=== PATIENT | female | born 1990 | race Caucasian/White ===

== ENCOUNTER 2016-06-14 13:05 | Outpatient (CLI) | payer MEDICARE | END 2016-06-14 15:31 | disposition home or self-care (01) | LOC: GENOP 13:05 | DX: O26.832 Pregnancy related renal disease, second trimester (principal); N20.0 Calculus of kidney; Z3A.27 27 weeks gestation of pregnancy | CPT/HCPCS: 81001; G0463 ==

== ENCOUNTER 2016-09-01 16:21 | Inpatient (IN) | payer MEDICARE ==
[~2016-09-01] VITALS: Ht 165.1 cm; Wt 114.8 kg
[2016-09-01 17:01] LABS: HEMOGLOBIN 13.8 gm/dl (12.3-15.3); RED BLOOD COUNT 4.88 M/UL (4.00-5.10); WHITE BLOOD COUNT 9.1 K/UL (4.5-11.0)
[2016-09-03 03:55] LABS: HEMOGLOBIN 12.5 gm/dl (12.3-15.3)
== END 2016-09-04 18:56 | disposition home or self-care (01) | DRG 775 ==
LOC: GENOP 16:21 → OB 16:30
PROVIDERS: Obstetrics & Gynecology; ADMIT Obstetrics & Gynecology
PROC: 10E0XZZ Delivery of Products of Conception, External Approach (ICD-10-PCS; principal; 2016-09-02)
PROC: 0U7C7ZZ Dilation of Cervix, Via Natural or Artificial Opening (ICD-10-PCS; 2016-09-02)
PROC: 10H07YZ Insertion of Other Device into Products of Conception, Via Natural or Artificial Opening (ICD-10-PCS; 2016-09-02)
PROC: 10907ZC Drainage of Amniotic Fluid, Therapeutic from Products of Conception, Via Natural or Artificial Opening (ICD-10-PCS; 2016-09-02)
DX: O24.419 Gestational diabetes mellitus in pregnancy, unspecified control (principal); O99.824 Streptococcus B carrier state complicating childbirth; Z3A.39 39 weeks gestation of pregnancy; Z37.0 Single live birth; Z79.899 Other long term (current) drug therapy
CPT/HCPCS: 36415; 51702; 81001; 82800; 82962; 85014; 85018; 85025; J2405; J2590; J2795; J3010; J7030; J7050